=== PATIENT | female | born 1970 | race Caucasian/White ===

== ENCOUNTER 2016-08-29 13:33 | Emergency (ER) | payer SELFPAY ==
--- NOTE | ~2016-08-29 | CT4 ---
[facility] A Service of [facility] RADIOLOGY TEXT RESULTS PATIENT: VIRGINIE MEYER LOCATION: АННА : 66 UNIT #: [id number] AGE: [address]: Uzair Vital MD SEX: F ORDER DR: [id number] [facility] [address] [place], [place] [address] [id number] E MR#: [id number] #: [id number] NAME: VIRGINIE MEYER : 1970 SEX: F STUDY DATE/TIME: 08/29/2016 14:23 UNIT: АННА ROOM: STUDY DESCRIPTION: CT Abd and Pelv Wo Cont Attending Physician: Uzair Vital M.D. Referring Physician: Marnie Self Referred Ordering Physician: Uzair Vital M.D. Primary Care Physician: [facility] MEDICAL IMAGING REPORT This report is preliminary unless electronic signature is present EXAM CT abdomen and pelvis INDICATIONS Right flank pain for [address] of the abdomen and pelvis without contrast. Coronal and sagittal reconstructions were obtained. This CT exam was performed with one or more of the following radiation dose reduction techniques: automatic control, adjustment of mA and/or kV according to patient size, and iterative reconstruction. COMPARISON CT abdomen and pelvis dated 07/22/2016. FINDINGS No urinary calculi. No hydronephrosis. The liver is cirrhotic. Gallbladder is surgically absent. There are some borderline enlarged periportal lymph nodes. There is mild splenomegaly. The bowel is not dilated. The appendix is normal. PELVIS: Uterus and ovaries are within normal limits. Bladder is unremarkable. No enlarged pelvic or inguinal lymph nodes. No acute osseous abnormalities. IMPRESSION 1. No acute findings in the abdomen and pelvis. 2. Cirrhosis of the liver. Dictated by... [facility] A Service of [facility] RADIOLOGY TEXT RESULTS PATIENT: VIRGINIE MEYER LOCATION: [facility] : 66 UNIT #: [id number] AGE: [address]: Uzair Vital MD SEX: F ORDER DR: Mihir Perez M.D. THIS IS AN ELECTRONICALLY VERIFIED REPORT Mihir Perez M.D. at 09/01/2016 8:06 AM RPArturo/ashleyr TD: 08/29/2016 23:46 JOB #: [id number] MEDICAL IMAGING REPORT COPY
[2016-08-29 13:17] LABS: BASOPHIL% 0.4 % (0-2.5); EOSINOPHIL# 0.2 X10e3 (0-0.7); EOSINOPHIL% 2.3 % (0.0-7.0); HEMATOCRIT 45.1 % (35.0-45.0); HEMOGLOBIN 15.2 gm/dL (12.0-16.0); LYMPHOCYTE# 1.5 X10e3 (1.0-3.5); LYMPHOCYTE% 17.5 % (17.0-45.0); MEAN CELL VOLUME 89.4 FL (83-96); MEAN CORPUSCULAR HEMOGLOBIN 30.2 PG (28-34); MEAN CORPUSCULAR HGB CONC 33.8 g/dL (30-36); MEAN PLATELET VOLUME 7.8 FL (6.5-11.5); MONOCYTE# 0.6 X10e3 (0-1.0); NEUTROPHIL# 6.3 X10e3 (1.5-7.1); NEUTROPHIL% 72.8 % (40-75); PLATELET COUNT 245 X10e3 (140-420); RED BLOOD COUNT 5.04 X10e (3.90-5.30); RED CELL DISTRIBUTION WIDTH 13.4 % (11.0-15.5); WHITE BLOOD COUNT 8.6 X10e3 (4.0-10.5)
[2016-08-29 13:26] LABS: URINE SOURCE CLEAN CATCH
[2016-08-29 13:34] LABS: URINE APPEARANCE CLOUDY; URINE BILIRUBIN NEG (NEG); URINE BLOOD 1+ (NEG); URINE COLOR YELLOW; URINE GLUCOSE NEG (NEG); URINE KETONE NEG (NEG); URINE LEUKOCYTE ESTERASE NEG (NEG); URINE NITRATE NEG (NEG); URINE PH 5.5 (5-8); URINE PROTEIN NEG (NEG); URINE SPECIFIC GRAVITY 1.023 (1.003-1.035); URINE UROBILINOGEN 0.2 MG/DL (NEG)
[2016-08-29 13:36] LABS: ALBUMIN SERUM 3.8 g/dL (3.5-5.0); ALKALINE PHOSPHATASE 56 U/L (32-92); ALT (SGPT) 16 U/L (10-40); AST (SGOT) 27 U/L (10-42); BILIRUBIN, DIRECT 0.1 mg/dL (0.0-0.2); BILIRUBIN,INDIRECT 0.1 mg/dL (0.0-0.9); BILIRUBIN,TOTAL 0.2 mg/dL (0.2-2.0); BLOOD UREA NITROGEN 12 mg/dL (9-23); CALCIUM SERUM 8.6 mg/dL (8.4-10.2); CARBON DIOXIDE 24 mmol/L (22-31); CHLORIDE 103 mmol/L (100-111); CREATININE SERUM 0.5 mg/dL (0.6-1.4); GLOM FILT RATE Estimated ABOVE60 mL/min (>60); GLUCOSE FASTING 85 mg/dL (70-110); POTASSIUM 4.1 mmol/L (3.5-5.1); PROTEIN TOTAL SERUM 7.7 g/dL (6.0-8.3); SODIUM 136 mmol/L (135-145)
[2016-08-29 13:36] LABS: CULTURE INDICATED? YES; URINE BACTERIA AUWI 1+ (NEGATIVE); URINE SQUAMOUS EPITHELIAL CELL MOD /[HPF]
[2016-08-29 13:45] LABS: DIFF IND NO
== END 2016-08-29 15:20 | disposition home or self-care (01) ==
LOC: CED 13:33
PROVIDERS: Emergency Medicine
DX: R10.9 Unspecified abdominal pain (principal)
CPT/HCPCS: 74176; 80048; 80076; 81003; 85025; 87086; 96374; 96375; 99284; J2270; J2405